=== PATIENT | female | born 1990 | race American Indian/Alaskan Native ===

== ENCOUNTER 2019-11-07 16:28 | Emergency (ER) | payer SELFPAY ==
[2019-11-07 18:50] VITALS: BP 119/60
[2019-11-07 20:33] LABS: HCG Qualitative,Urine Positive (Negative)
[2019-11-07 20:37] LABS: Bacteria,Urine 1+ /HPF (Negative); Bilirubin,Urine NEG (Negative); Blood,Urine NEG (Negative); Color,Urine Yellow (Yellow); Mucus,Urine 1+ /HPF; Protein,Urine <15 mg/dL mg/dL (Negative)
== END 2019-11-08 03:22 ==
LOC: ED 16:28
DX: R10.9 Unspecified abdominal pain (principal); Z53.21 Procedure and treatment not carried out due to patient leaving prior to being seen by health care provider
CPT/HCPCS: 81001; 81025; 87086